=== PATIENT | male | born 1985 | race Caucasian/White ===

== ENCOUNTER 2017-06-10 16:57 | Emergency (ER) | payer OTHER ==
[~2017-06-10] VITALS: Ht 175.3 cm; Wt 66.8 kg
[2017-06-10 16:57] VITALS: TEMP 36.8; O2SAT 95; Ht 175.3 cm; Wt 66.8 kg
[~2017-06-10 16:57] MED LIST: ACYC-147 PO; ATV/1 PO; DXM/4 PO; FLUC100T PO; MORP15TA PO; MORP15TA19 PO; OMEP20CA9 PO; ONDA8TAB12 PO; POLY335019 PO; PROC1TAB5 PO; SENN-91 PO; SULF800T23 PO; ZOLP5TAB PO
--- NOTE | 2017-06-10 17:04 | EMERGENCY ROOM VISIT NOTE ---
History Report prepared by Emily: Karley Loaiza Under the Supervision of: Dr. Rojelio Berman M.D. First contact with patient: 16:58 Chief Complaint: RESPIRATORY PROBLEMS Stated Complaint: SOB History of Present Illness The patient is a 31 year old male who presents to the Emergency Room with complaints of shortness of breath beginning today. Per EMS, the patient has ALL and has been in [facility] since May 31. Per EMS, the patient had an X- Ray today which had infiltrate. EMS states that the patient complained of shortness of breath, but denies chest pain and nausea. Per EMS, the patient reports eating and drinking normally today. The patient denies choking on any food in the last 2 weeks. The patient also reports having bilateral foot pain. Source of History: patient, EMS Onset: today Position: other (global) Quality: other (shortness of breath ) Associated Symptoms: No chest pain, No nausea Note: additional symptom: bilateral foot pain Review of Systems All systems have been listed, reviewed, and are negative other than those previously mentioned. Please see Additional Medical History Sheet. Past Medical & Surgical Medical Problems: (1) ALL (acute lymphoblastic leukemia) (2) PMR (polymyalgia rheumatica) Family History No pertinent family history stated. Social History Smoking Status: Never Smoker Alcohol Use: none Drug Use: none Marital Status: single Housing Status: lives with family Current/Historical Medications Scheduled Cyclosporine (Ophth) (Restasis), 1 DROP OP BID Dapsone (Dapsone), 100 MG PO DAILY Docusate Sodium (Docusate Sodium), 100 MG PO BID Enoxaparin (Lovenox), 40 MG SQ DAILY Home O2 Therapy (Oxygen), 1.5 LITER NA CONTINOUS Levetiracetam (Keppra), 1,000 MG PO BID Pantoprazole (Protonix), 40 MG PO QAM Penicillin V Potassium (Penicillin V Potassium), 250 MG PO BID Prednisone (Prednisone), 10 MG PO QAM Quetiapine Fumarate (Seroquel), 25 MG PO HS Quetiapine Fumarate (Seroquel), 12.5 MG PO BID Sennosides-Docusate Sodium (Docusate Sodium/Senna), 1 TAB PO HS Sertraline (Zoloft), 100 MG PO DAILY Suvorexant (Belsomra), 10 MG PO HS Valacyclovir (Valtrex), 500 MG PO BID Vancomycin Hcl (Vancomycin), 125 MG PO BID Voriconazole (Voriconazole), 200 MG PO BID Scheduled PRN Acetaminophen (Tylenol), 500 MG PO Q4 PRN for Pain Tramadol (Ultram), 50 MG PO Q4H PRN for Pain Allergies Coded Allergies: Foscarnet (Unverified Allergy, Unknown, UNKNOWN, 06/10/17) Physical Exam Vital Signs Date Time Temp Pulse Resp B/P (MAP) Pulse Ox O2 Delivery O2 Flow Rate FiO2 06/10/17 22:03 104 22 106/59 94 Nasal Cannula 2.0 06/10/17 21:14 105 06/10/17 21:09 101 18 111/65 95 Nasal Cannula 2.0 06/10/17 20:32 97 21 107/62 97 Nasal Cannula 2.0 06/10/17 19:33 103 19 102/58 97 Nasal Cannula 2.0 06/10/17 19:00 105 21 118/70 97 Nasal Cannula 2.0 06/10/17 18:31 108 22 107/58 98 Nasal Cannula 2.0 06/10/17 17:38 103 22 113/70 98 Nasal Cannula 2.0 06/10/17 17:17 101 06/10/17 16:57 95 Nasal Cannula 2.0 06/10/17 16:57 36.8 110 21 98/69 95 Nasal Cannula 2.0 06/10/17 16:57 95 Nasal Cannula 2.0 Physical Exam GENERAL: Patient awake, alert, oriented x 3. Patient follows commands. Patient does not appear toxic. Patient is adequately hydrated and well- nourished. Patient appears extremely weak. SKIN: No pallor, cyanosis or rash. Slight erythema above umbilicus from previous peg tube. HEENT: Normal head, pupils equal, reactive to light and accommodation. Slight injection of both eyes. LUNGS: Shallow breath sounds. No wheezes, no rales, no rhonchi. HEART: No murmurs. No gallops. No rubs ABDOMEN:Soft, non-tender. EXTREMITIES: No signs of trauma. No pedal or pretibial edema. No calf or thigh tenderness. Atrophic lower extremities. NEUROLOGIC: Cranial nerves II-XII within normal limits. No gross motor sensory function deficits. Medical Decision & Procedures ER Provider Diagnostic Interpretation: Radiology results as stated below per my review and radiologist interpretation: CHEST ONE VIEW PORTABLE CLINICAL HISTORY: pneumonia? Dyspnea COMPARISON STUDY: 03/13/2015 FINDINGS: Findings of diffuse interstitial change throughout both hemithoraces. This is not present on the prior exam. Diffuse interstitial inflammatory process is considered. Atypical pulmonary edematous pattern is not excluded. Slight fullness of the hilar regions bilaterally IMPRESSION: Diffuse increase in interstitial change throughout both hemithoraces suggestive of a diffuse inflammatory process. Slight fullness of the hilar regions. If this does not resolve, CT stated chest would be suggested to exclude any possibility of adenopathy or underlying pathologic process. The above report was generated using voice recognition software. It may contain grammatical, syntax or spelling errors. Electronically signed by: Jason Emerson M.D. 06/10/2017 6:54 PM Dictated Date/Time: 06/10/2017 6:49 PM Laboratory Results 06/10/17 18:33 Red Blood Count 3.20, Mean Corpuscular Volume 105.3, Mean Corpuscular Hemoglobin 34.4, Mean Corpuscular Hemoglobin Concent 32.6, Mean Platelet Volume 10.1, Neutrophils (%) (Auto) 80.1, Lymphocytes (%) (Auto) 12.6, Monocytes (%) ( Auto) 6.0, Eosinophils (%) (Auto) 0.0, Basophils (%) (Auto) 0.2, Neutrophils # ( Auto) 10.06, Lymphocytes # (Auto) 1.59, Monocytes # (Auto) 0.76, Eosinophils # ( Auto) 0.00, Basophils # (Auto) 0.02 06/10/17 18:33 Test 06/10/17 17:21 06/10/17 18:33 06/10/17 21:01 White Blood Count 12.57 K/uL (4.8-10.8) Red Blood Count 3.20 M/uL (4.7-6.1) Hemoglobin 11.0 g/dL (14.0-18.0) Hematocrit 33.7 % (42-52) Mean Corpuscular Volume 105.3 fL (80-100) Mean Corpuscular Hemoglobin 34.4 pg (25-34) Mean Corpuscular Hemoglobin Concent 32.6 g/dl (32-36) Platelet Count 63 K/uL (130-400) Mean Platelet Volume 10.1 fL (7.4-10.4) Neutrophils (%) (Auto) 80.1 % Lymphocytes (%) (Auto) 12.6 % Monocytes (%) (Auto) 6.0 % Eosinophils (%) (Auto) 0.0 % Basophils (%) (Auto) 0.2 % Neutrophils # (Auto) 10.06 K/uL (1.4-6.5) Lymphocytes # (Auto) 1.59 K/uL (1.2-3.4) Monocytes # (Auto) 0.76 K/uL (0.11-0.59) Eosinophils # (Auto) 0.00 K/uL (0-0.5) Basophils # (Auto) 0.02 K/uL (0-0.2) RDW Standard Deviation 70.6 fL (36.4-46.3) RDW Coefficient of Variation 18.3 % (11.5-14.5) Immature Granulocyte % (Auto) 1.1 % Immature Granulocyte # (Auto) 0.14 K/uL (0.00-0.02) Platelet Estimate DECREASED Prothrombin Time 11.4 SECONDS (9.0-12.0) Prothromb Time International Ratio 1.1 (0.9-1.1) Activated Partial Thromboplast Time 44.8 SECONDS (21.0-31.0) Partial Thromboplastin Ratio 1.7 Anion Gap 8.0 mmol/L (3-11) Est Creatinine Clear Calc Drug Dose 174.2 ml/min Estimated GFR () > 150.0 Estimated GFR (Non- 134.9 BUN/Creatinine Ratio 19.1 (10-20) Calcium Level 8.2 mg/dl (8.5-10.1) Total Bilirubin 0.5 mg/dl (0.2-1) Aspartate Amino Transf (AST/SGOT) 78 U/L (15-37) Alanine Aminotransferase (ALT/SGPT) 45 U/L (12-78) Alkaline Phosphatase 193 U/L (45-117) Total Protein 5.6 gm/dl (6.4-8.2) Albumin 2.2 gm/dl (3.4-5.0) Globulin 3.4 gm/dl (2.5-4.0) Albumin/Globulin Ratio 0.6 (0.9-2) Lactic Acid Level 2.9 mmol/L (0.4-2.0) Laboratory results as stated above per my review. Medications Administered Medications (Trade) Dose Ordered Sig/Salma Route Start Time Stop Time Status Last Admin Dose Admin Sodium Chloride 1,000 ml @ 1,000 mls/hr Q1H ONCE IV 06/10/17 17:30 06/10/17 18:29 DC 06/10/17 18:30 1,000 MLS/HR Morphine Sulfate (MoRPHine SULFATE INJ) 6 mg Q1H PRN IV 06/10/17 18:30 06/24/17 18:29 06/10/17 18:30 6 MG Piperacillin Sod/ Tazobactam Sod (Zosyn Iv) 3.375 gm NOW STAT IV 06/10/17 20:13 06/10/17 20:15 DC 06/10/17 21:07 3.375 GM Levofloxacin (Levaquin / D5W) 500 mg NOW ONCE IV 06/10/17 20:15 06/10/17 20:16 DC 06/10/17 22:03 500 MG Sodium Chloride 1,000 ml @ 1,000 mls/hr Q1H ONCE IV 06/10/17 20:30 06/10/17 21:29 DC 06/10/17 21:07 1,000 MLS/HR ECG Indication: SOB/dyspnea Rate (beats per minute): 100 Rhythm: normal sinus Findings: no acute ischemic change, no ectopy ED Course 1700: Past medical records reviewed. The patient was evaluated in room C6. A complete history and physical examination was performed. 1725: I talked with the patient's family. I explained that the patient needs fluids and his blood work checked. I explained that he needs fluids because of his blood pressure. I told his family that I am going to have someone from the IV team come to stick him. I also explained how the X-Ray would be done in the room and that he would not have to leave for that. I stated the need for an additional X-Ray to see if there are any changes from earlier today. The patient stated that he would give someone on the IV team one try to stick him. 1730: Ordered Sodium Chloride 1,000 ml @ 1,000 mls/hr IV. 0: Ordered Morphine Sulfate 6 mg IV. 1955: I checked on the patient and talked him into getting more blood work done for cultures to be seen. 2015: Ordered Levofloxacin 500 mg IV. 2016: Upon reevaluation, the patient is resting.I discussed today's findings with him and his family. He and his family verbalized agreement of the treatment plan. [facility] for further management. 2029: Natalia ARTEAGA is reluctant to take the patient and would rather send him to [facility]. 2047: I spoke with the patient. He is refusing to go to [facility] so we will try to admit him to [facility]. 2108: Discussed the patient's case with Dr. Monroy. The patient will be evaluated for further management. 2139: Both parents and the patient now decided that they want patient to go to [facility]. 2209; I discussed the case with Dr. Banda and Dr. Ashraf at [facility]. They accepted the patient for transfer there. 5 I discussed the change with the patient and parents. They are happy with the transfer to [facility]. Medical Decision Nurses notes reviewed. Medical history sheet reviewed. Differential diagnosis includes but is not limited to: pneumonia, sepsis, hypotension, metabolic disorder, dehydration, and ALL. The patient has a long history of multiple problems including acute leukemia, bone marrow transplant, [id number] rejection. The patient was recently on a ventilator at [facility]. The patient is debilitated from his 2.5 years fighting the leukemia. Multiple labs, EKG and imaging were obtained today. The patient's white count is minimally elevated. Platelet count is low. Lactic acid is elevated. The patient was slightly hypotensive on arrival was given IV fluids which corrected the hypotension. The patient has no fever. Clinically he does not appear to be septic. Blood cultures were obtained prior to administration of Zosyn and Levaquin. I initially attempted to have the patient admitted here but [facility] that it is [facility]. They felt the patient was at significant risk due to his significant past history and that he should follow with his previous oncology service. I initially discussed care with [facility] as per the patient's request but then parents felt that he should go to [facility]. I then contacted that hospital and got acceptance from them for transfer to their hospital health system. The patient did receive IV fluids and antibiotics while here in our ED. He also received IV morphine for pain control. The patient remained on oxygen during the entire stay. Medication Reconcilliation Current Medication List: was personally reviewed by me Blood Pressure Screening Patient's blood pressure: Low blood pressure Consults Time Called: 2013 Consulting Physician: Natalia Zapata Returned Call: 2015 Discussed the patient's case with Natalia ARTEAGA. The patient will be evaluated for further management. Additional Consults: Time Called: 2029 Consulted Physician: Natalia Zapata Returned Call: 2029 Additional Comments: Natalia ARTEAGA is reluctant to take the patient and would rather send him to [facility]. Time Called: 2099 Consulted Physician: Dr. Shelby Zapata Returned Call: 2108 Additional Comments: Discussed the patient's case with Dr. Monroy. The patient will be evaluated for further management. Impression Primary Impression: Pneumonia Additional Impressions: ALL (acute lymphoblastic leukemia) Anemia Thrombocytopenia Critical Care I have personally spent greater than 90 minutes of critical care time in the direct management of this patient. This includes bedside care, interpretation of diagnostic studies, and testing, discussion with consultants, patient, and family members, and other required patient management activities. This 90 minutes is in excess of all separately billable procedures. Scribe Attestation The scribe's documentation has been prepared under my direction and personally reviewed by me in its entirety. I confirm that the note above accurately reflects all work, treatment, procedures, and medical decision making performed by me. Departure Information Referrals Luke Carey PA-C (PCP) Patient Instructions My [facility] Problem Qualifiers
[2017-06-10] MEDS ORDERED: SODIUM CHLORIDE 0.9% 1000ML 1,000 ML IV ONE ×2 (17:30→20:30)
[2017-06-10] MEDS ORDERED: VFEND PO (17:34)
[2017-06-10] MEDS ORDERED: PENI-82 PO (17:36)
[2017-06-10] MEDS ORDERED: PANT40TA PO (17:36)
[2017-06-10] MEDS ORDERED: DAPSONE PO (17:36)
[2017-06-10] MEDS ORDERED: QUET1TAB34 PO (17:36)
[2017-06-10] MEDS ORDERED: SERT-234 PO ×2 (17:36→18:01)
[2017-06-10] MEDS ORDERED: OXGN (17:37)
[2017-06-10] MEDS ORDERED: VANC5CAP PO (18:01)
[2017-06-10] MEDS ORDERED: ACET-1256 PO (18:01)
[2017-06-10] MEDS ORDERED: TRAM-10 PO (18:01)
[2017-06-10] MEDS ORDERED: SENN8.6T36 PO (18:01)
[2017-06-10] MEDS ORDERED: PNC/500 PO (18:01)
[2017-06-10] MEDS ORDERED: PRED10TA PO (18:01)
[2017-06-10] MEDS ORDERED: SUVO1TAB2 PO (18:01)
[2017-06-10] MEDS ORDERED: VFND200 PO (18:01)
[2017-06-10] MEDS ORDERED: DAPS100T PO (18:01)
[2017-06-10] MEDS ORDERED: ENOX40IN SQ (18:01)
[2017-06-10] MEDS ORDERED: CYCL0.052 OP (18:01)
[2017-06-10] MEDS ORDERED: QUET1TAB30 PO ×2 (18:01)
[2017-06-10] MEDS ORDERED: DOCU100C31 PO (18:01)
[2017-06-10] MEDS ORDERED: VALA500T60 PO (18:01)
[2017-06-10] MEDS ORDERED: KPP/1000 PO (18:01)
[2017-06-10] MEDS: MoRPHine SULFATE 10 MG/ML CARP/VIAL IV PRN ×2 (18:30→23:13)
--- NOTE | 2017-06-10 18:56 | DIAGNOSTIC IMAGING REPORT ---
CHEST ONE VIEW PORTABLE CLINICAL HISTORY: pneumonia? Dyspnea COMPARISON STUDY: 03/13/2015 FINDINGS: Findings of diffuse interstitial change throughout both hemithoraces. This is not present on the prior exam. Diffuse interstitial inflammatory process is considered. Atypical pulmonary edematous pattern is not excluded. Slight fullness of the hilar regions bilaterally IMPRESSION: Diffuse increase in interstitial change throughout both hemithoraces suggestive of a diffuse inflammatory process. Slight fullness of the hilar regions. If this does not resolve, CT stated chest would be suggested to exclude any possibility of adenopathy or underlying pathologic process. The above report was generated using voice recognition software. It may contain grammatical, syntax or spelling errors. Electronically signed by: Jason Emerson M.D. 06/10/2017 6:54 PM Dictated Date/Time: 06/10/2017 6:49 PM
[2017-06-10 19:01] LABS: INR 1.1 (0.9-1.1); PARTIAL THROMBOPLASTIN RATIO 1.7; PROTHROMBIN TIME (PATIENT) 11.4 SECONDS (9.0-12.0)
[2017-06-10 19:09] LABS: ALT/SGPT 45 U/L (12-78); AST/SGOT 78 U/L (15-37); BLOOD UREA NITROGEN 11 mg/dl (7-18); BUN/CREATININE RATIO 19.1 (10-20); CALCIUM 8.2 mg/dl (8.5-10.1); CARBON DIOXIDE 31 mmol/L (21-32); CHLORIDE 96 mmol/L (98-107); CREATININE 0.57 mg/dl (0.60-1.40); GLUCOSE 94 mg/dl (70-99); POTASSIUM 4.4 mmol/L (3.5-5.1); SODIUM 135 mmol/L (136-145)
[2017-06-10 19:11] LABS: ALB/GLOB RATIO 0.6 (0.9-2); ALKALINE PHOSPHATASE 193 U/L (45-117); HEMATOCRIT 33.7 % (42-52); MEAN CELL VOLUME 105.3 fL (80-100); MEAN CORPUSCULAR HEMOGLOBIN 34.4 pg (25-34); MEAN CORPUSCULAR HGB CONC 32.6 g/dl (32-36); MEAN PLATELET VOLUME 10.1 fL (7.4-10.4); PLATELET COUNT 63 K/uL (130-400); WHITE BLOOD COUNT 12.57 K/uL (4.8-10.8)
[2017-06-10 19:12] LABS: BASO % 0.2 %; BASO ABS # 0.02 K/uL (0-0.2); COMPLETE YES; IG% 1.1 %; LYMPH % 12.6 %; LYMPH ABS # 1.59 K/uL (1.2-3.4); NEUT % 80.1 %; PLT ESTIMATE DECREASED
[2017-06-10] MEDS ORDERED: PIPERACILLIN/TAZOBACTAM 3.375 GM/100ML D5W IV STA (20:13)
[2017-06-10] MEDS ORDERED: LEVAQUIN 500MG / 100ML D5W IV ONE (20:15)
[2017-06-10] MEDS ORDERED: SODIUM CHLORIDE 0.9% 1000ML 1,000 ML IV STA (21:49)
[2017-06-10 23:00] VITALS: BP 116/62; PULSE 111; O2SAT 92
[2017-06-11] MEDS ORDERED: MoRPHine SULFATE 10 MG/ML CARP/VIAL ONE (06:53)
== END 2017-06-10 23:23 | disposition short-term general hospital (02) ==
LOC: EDBD 16:57 → C.EDC 16:59
DX: J18.9 Pneumonia, unspecified organism (principal); C91.00 Acute lymphoblastic leukemia not having achieved remission; D64.9 Anemia, unspecified; D69.6 Thrombocytopenia, unspecified; I95.9 Hypotension, unspecified